=== PATIENT | female | born 1995 | race Caucasian/White ===

== ENCOUNTER 2024-05-11 08:43 | Emergency (ER) | payer OTHER ==
[2024-05-11 09:15] LABS: Specific Gravity 1.019 (1.005-1.030)
[2024-05-11 09:18] LABS: Specific Gravity 1.019 (1.005-1.030); Urine Bacteria <20 /HPF (<20); Urine Bilirubin NEGATIVE (Negative); Urine Blood Negative (Negative); Urine Clarity Extremely Turbid (Clear); Urine Color Yellow (Yellow); Urine Culture Reflex Order REFLEXED; Urine Glucose NEGATIVE (Negative); Urine Ketones NEGATIVE (Negative); Urine Microscopic Reflex YN ORDER UMIC; Urine Mucus Slight /HPF (None Seen); Urine Nitrite NEGATIVE (Negative); Urine Protein NEGATIVE (Negative); Urine RBC <5 /HPF (None Seen); Urine Urobilinogen 1+ (Normal)
[2024-05-11] MEDS ORDERED: AZITHROMYCIN 250 MG TAB ONE (10:16)
[2024-05-11] MEDS ORDERED: CEFTRIAXONE 1000 MG/VIAL ONE (10:16)
[2024-05-11] MEDS ORDERED: LIDOCAINE 1% MPF 2 ML AMPULE ONE (10:16)
[2024-05-11] MEDS ORDERED: DOXYCYCLINE 100 MG CAP PO ONE (10:17)
--- NOTE | 2024-05-11 10:20 | EDPHYS ---
Physician Documentation [facility] Name: Anamaria Kidd Age: 28 yrs Sex: Female : 1995 Arrival Date: 05/11/2024 Time: 08:43 Bed 12 Private MD: ED Physician Antione Mena HPI: 05/11 10:11 This 28 yrs old Female presents to ER via Ambulatory with complaints of STD burak Exposure. 10:11 The patient presents with pelvic pain, that is located in/on the suprapubic area, a burak possible exposure to a sexually transmitted disease, gonorrhea, chlamydia. Onset: The symptoms/episode began/occurred 2 day(s) ago. Modifying factors: The symptoms are alleviated by nothing, the symptoms are aggravated by nothing. Associated signs and symptoms: Pertinent positives: dysuria. Severity of symptoms: At their worst the symptoms were very mild, in the emergency department the symptoms are unchanged. The patient is sexually active. It is unknown whether or not the patient has had similar symptoms in the past. Historical: - Allergies: 09:05 No Known Allergies; hb - Home Meds: 09:05 Lopressor Oral [Active]; Effexor Oral [Active]; Buspirone Oral [Active]; Adderall XR hb Oral [Active]; - PMHx: 09:05 HTN; ADHD; Depression; hb - PSHx: 09:05 None; hb - Immunization history:: Adult Immunizations up to date. - Infectious Disease History:: Denies. - Social history:: Smoking status: Reported history of juuling and/or vaping. - Family history:: not pertinent. ROS: 10:11 Constitutional: Negative for fever, chills, and weight loss, Eyes: Negative for injury, burak pain, redness, and discharge, ENT: Negative for injury, pain, and discharge, Neck: Negative for injury, pain, and swelling, Cardiovascular: Negative for chest pain, palpitations, and edema, Respiratory: Negative for shortness of breath, cough, wheezing, and pleuritic chest pain, Abdomen/GI: Negative for abdominal pain, nausea, vomiting, diarrhea, and constipation, Back: Negative for injury and pain, MS/Extremity: Negative for injury and deformity, Skin: Negative for injury, rash, and discoloration, Neuro: Negative for headache, weakness, numbness, tingling, and seizure, Psych: Negative for depression, anxiety, suicide ideation, homicidal ideation, and hallucinations, Allergy/Immunology: Negative for hives, rash, and allergies, Endocrine: Negative for neck swelling, polydipsia, polyuria, polyphagia, and marked weight changes, Hematologic/Lymphatic: Negative for swollen nodes, abnormal bleeding, and unusual bruising, Exam: 10:11 Constitutional: This is a well developed, well nourished patient who is awake, alert, burak and in no acute distress. Head/Face: Normocephalic, atraumatic. Eyes: Pupils equal round and reactive to light, extra-ocular motions intact. Lids and lashes normal. Conjunctiva and sclera are non-icteric and not injected. Cornea within normal limits. Periorbital areas with no swelling, redness, or edema. ENT: Nares patent. No nasal discharge, no septal abnormalities noted. Tympanic membranes are normal and external auditory canals are clear. Oropharynx with no redness, swelling, or masses, exudates, or evidence of obstruction, uvula midline. Mucous membranes moist. Neck: Trachea midline, no thyromegaly or masses palpated, and no cervical lymphadenopathy. Supple, full range of motion without nuchal rigidity, or vertebral point tenderness. No Meningismus. Chest/axilla: Normal chest wall appearance and motion. Nontender with no deformity. No lesions are appreciated. Cardiovascular: Regular rate and rhythm with a normal S1 and S2. No gallops, murmurs, or rubs. Normal PMI, no JVD. No pulse deficits. Respiratory: Lungs have equal breath sounds bilaterally, clear to auscultation and percussion. No rales, rhonchi or wheezes noted. No increased work of breathing, no retractions or nasal flaring. Abdomen/GI: Soft, non-tender, with normal bowel sounds. No distension or tympany. No guarding or rebound. No evidence of tenderness throughout. Skin: Warm, dry with normal turgor. Normal color with no rashes, no lesions, and no evidence of cellulitis. MS/ Extremity: Pulses equal, no cyanosis. Neurovascular intact. Full, normal range of motion., bilateral aka Neuro: Awake and alert, GCS 15, oriented to person, place, time, and situation. Cranial nerves II-XII grossly intact. Motor strength 5/5 in all extremities. Sensory grossly intact. Cerebellar exam normal. Normal gait. Psych: Awake, alert, with orientation to person, place and time. Behavior, mood, and affect are within normal limits. Vital Signs: 09:03 BP 142 / 75; Pulse 74; Resp 16; Temp 98.2; Pulse Ox 100% on R/A; Weight 72.57 kg; hb Height 5 ft. 9 in. ; Pain 5/10; 09:03 Body Mass Index 23.63 (72.57 kg, 175.26 cm) hb 09:03 Pain Scale: Adult hb MDM: 08:49 Medical Screening Exam initiated burak 10:14 Differential diagnosis: nonspecific abdominal pain, urinary tract infection, vaginosis. [facility] Data reviewed: vital signs, nurses notes, lab test result(s), urinalysis. Consideration of Admission/Observation Escalation of care including admission/observation considered. I considered the following discharge prescriptions or medication management in the emergency department Medications were administered in the Emergency Department. See MAR. Test considered but Not performed: Labs: no cbc, no comp met. Historians other than the Patient: pt well informed. Care significantly affected by the following chronic conditions: none. Counseling: I had a detailed discussion with the patient and/or guardian regarding the historical points, exam findings, and any diagnostic results supporting the discharge/admit diagnosis, lab results, radiology results. 05/11 08:51 Order name: Urinalysis w/ reflexes; Complete Time: 10:[address] [facility] 05/11 08:51 Order name: PREGU; Complete Time: 10:[address] [facility] 05/11 09:30 Order name: Urine Culture EDMS Administered Medications: 10:32 Drug: Rocephin (cefTRIAXone) IM 1 grams IM once Route: IM; Site: left gluteus; hb 10:33 Follow up: Response: Medication administered at discharge. hb 10:32 Drug: AZITHromycin PO 1 grams PO once Route: PO; hb 10:32 Follow up: Response: Medication administered at discharge. hb 10:32 Drug: Doxycycline PO 200 mg PO once; give if test is neg Route: PO; hb 10:32 Follow up: Response: Medication administered at discharge. hb Disposition Summary: 05/11/24 10:19 Discharge Ordered Notes: Location: Home burak Problem: new burak Symptoms: have improved burak Condition: Stable burak Diagnosis - UTI/ Urinary tract infection, site not specified - fear of STD [facility] Followup: burak - With: Private Physician - When: 2 - 3 days - Reason: Recheck today's complaints, Continuance of care, Re-evaluation by your physician Followup: burak - With: Laurel Mercedes MD - When: 2 - 3 days - Reason: Recheck today's complaints, Re-evaluation by your physician Discharge Instructions: - Discharge Summary Sheet burak - Dysuria burak - Urinary Tract Infection, Adult burak - Urinary Tract Infection, Adult, [id number] burak - Safe Sex [facility] - Preventing Sexually Transmitted Infections, Adult [facility] Forms: - Medication Reconciliation Form [facility] - Antibiotic Education burak - Prescription Opioid Use burak - Patient Portal Instructions [facility] - Leadership Thank You Letter [facility] Prescriptions: - Flagyl 500 mg Oral Tablet - take 4 tablets ORAL route one time for 1 day; 4 tablet; Refills: 0, Product [facility] Selection Permitted - Doxycycline Hyclate 100 mg Oral tablet - take 1 tablet ORAL route every 12 hours; 14 tablet; Refills: 0, Product [facility] Selection Permitted - Cipro 500 mg Oral Tablet - take 1 tablet ORAL route every 12 hours for 7 days; 14 tablet; Refills: 0, [facility] Product Selection Permitted Signatures: Dispatcher [employer] Antione Ashley MD MD cha Baxter, Heather, RN RN
--- NOTE | 2024-05-11 10:20 | ER ---
Nurse's Notes [facility] Name: Anamaria Kidd Age: 28 yrs Sex: Female : 1995 Arrival Date: 05/11/2024 Time: 08:43 Bed 12 Private MD: Diagnosis: UTI/ Urinary tract infection, site not specified-fear of STD Presentation: 05/11 09:03 Chief complaint:. Coronavirus screen: At this time, the client does not indicate any hb symptoms associated with coronavirus-19. Ebola Screen: No symptoms or risks identified at this time. Initial Sepsis Screen: Does the patient meet any 2 criteria? No. Patient's initial sepsis screen is negative. Does the patient have a suspected source of infection? No. Patient's initial sepsis screen is negative. Risk Assessment: Do you want to hurt yourself or someone else? Patient reports no desire to harm self or others. Onset of symptoms was May 04, 2024. 09:03 Method Of Arrival: Ambulatory hb 09:03 Acuity: REDDY 3 hb Historical: - Allergies: 09:05 No Known Allergies; hb - Home Meds: 09:05 Lopressor Oral [Active]; Effexor Oral [Active]; Buspirone Oral [Active]; Adderall XR hb Oral [Active]; - PMHx: 09:05 HTN; ADHD; Depression; hb - PSHx: 09:05 None; hb - Immunization history:: Adult Immunizations up to date. - Infectious Disease History:: Denies. - Social history:: Smoking status: Reported history of juuling and/or vaping. - Family history:: not pertinent. Screenin:15 [facility] ED Fall Risk Assessment (Adult) History of falling in the last 3 months, hb including since admission No falls in past 3 months (0 pts) Confusion or Disorientation No (0 pts) Intoxicated or Sedated No (0 pts) Impaired Gait No (0 pts) Mobility Assist Device Used No (0 pt) Altered Elimination No (0 pt) Score/Fall Risk Level 0 - 2 = Low Risk Oriented to surroundings, Maintained a safe environment, Educated pt \T\ family on fall prevention, incl call for assistance when getting out of bed. Abuse screen: Denies threats or abuse. Denies injuries from another. Nutritional screening: No deficits noted. Tuberculosis screening: No symptoms or risk factors identified. Assessment: 09:05 General: Appears in no apparent distress. Behavior is calm, cooperative. Pain: Pain hb currently is 5 out of 10 on a pain scale. Neuro: Level of Consciousness is awake, alert, obeys commands, Oriented to person, place, time, situation. Cardiovascular: Patient's skin is warm and dry. Respiratory: Respiratory effort is even, unlabored, Respiratory pattern is regular, symmetrical. GI: Reports lower abdominal pain, nausea. : No signs and/or symptoms were reported regarding the genitourinary system. EENT: No signs and/or symptoms were reported regarding the EENT system. Derm: Skin is pink, warm \T\ dry. Musculoskeletal: No signs and/or symptoms reported regarding the musculoskeletal system. 10:33 Reassessment: Patient appears in no apparent distress at this time. Patient and/or hb family updated on plan of care and expected duration. Pain level reassessed. Patient is alert, oriented x 3, equal unlabored respirations, skin warm/dry/pink. Vital Signs: 09:03 BP 142 / 75; Pulse 74; Resp 16; Temp 98.2; Pulse Ox 100% on R/A; Weight 72.57 kg; hb Height 5 ft. 9 in. ; Pain 5/10; 09:03 Body Mass Index 23.63 (72.57 kg, 175.26 cm) hb 09:03 Pain Scale: Adult hb ED Course: 08:45 Patient arrived in ED. im 08:49 Antione Mena MD is Attending Physician. [facility] 09:05 Triage completed. hb 09:12 Arm band placed on. hb 09:13 Alice Weems, RN is Primary Nurse. hb 09:15 Patient has correct armband on for positive identification. Bed in low position. Call hb light in reach. Provided Education on: tests, result times, use of call light, bathroom location . 09:15 No provider procedures requiring assistance completed. Patient did not have IV access hb during this emergency room visit. 10:18 Laurel Mercedes MD is Referral Physician. burak Administered Medications: 10:32 Drug: Rocephin (cefTRIAXone) IM 1 grams IM once Route: IM; Site: left gluteus; hb 10:33 Follow up: Response: Medication administered at discharge. hb 10:32 Drug: AZITHromycin PO 1 grams PO once Route: PO; hb 10:32 Follow up: Response: Medication administered at discharge. hb 10:32 Drug: Doxycycline PO 200 mg PO once; give if test is neg Route: PO; hb 10:32 Follow up: Response: Medication administered at discharge. hb Medication: 10:33 VIS not applicable for this client. hb Outcome: 10:19 Discharge ordered by . [facility] 10:34 Discharged to home ambulatory, 10:34 Condition: stable 10:34 Discharge instructions given to patient, Instructed on discharge instructions, follow up and referral plans. medication usage, Demonstrated understanding of instructions, follow-up care, medications, Prescriptions given X 3, 10:35 Patient left the ED. hb Signatures: Antione Mena MD MD cha Baxter, Heather, RN RN Kerry Montano
[2024-05-11 10:46] VITALS: BP 142/75; TEMP 98.2; O2SAT 100
== END 2024-05-11 10:35 | disposition home or self-care (01) ==
LOC: ER 08:43
DX: N39.0 Urinary tract infection, site not specified (principal); Z20.2 Contact with and (suspected) exposure to infections with a predominantly sexual mode of transmission
CPT/HCPCS: 87088; 81001; 87086; 81025; 96372; 99284; J0696